=== PATIENT | male | born 1990 | race Two or more races ===

== ENCOUNTER 2022-04-29 15:27 | Emergency (ER) | payer OTHER ==
[~2022-04-29] VITALS: Ht 170.2 cm; Wt 204.1 kg
[2022-04-29] MEDS ORDERED: LASIX40 MG PO (15:57)
[2022-04-29] MEDS ORDERED: COZAAR100 MG PO (15:57)
== END 2022-04-29 20:15 | disposition home or self-care (01) ==
LOC: ER 15:27
DX: I10 Essential (primary) hypertension (principal)

== ENCOUNTER → 2022-07-17 | Emergency (ER) | payer OTHER ==
[~2022-07-17] VITALS: Ht 170.2 cm; Wt 181.4 kg
[~2022-07-17] MED LIST: AMOX-CLAV 875-1 EACH PO; COZAAR100 MG PO; LASIX40 MG PO; PEPCID AC20 MG PO
== END | disposition home or self-care (01) ==
LOC: ER 17:13
DX: J03.90 Acute tonsillitis, unspecified (principal); R53.1 Weakness; I10 Essential (primary) hypertension